=== PATIENT | female | born 1985 | race Two or more races ===

== ENCOUNTER 2022-10-13 19:55 | Emergency (ER) | payer OTHER ==
[~2022-10-13] VITALS: Ht 170.2 cm; Wt 113.4 kg
[~2022-10-13 19:55] MED LIST: PREDNISONE5 MG/DOSE- PO; RECTICARE30 GM TP; ZYRTEC10 MG PO
[2022-10-13] MEDS ORDERED: TOPROL XL25 M1 (20:06)
[2022-10-13] MEDS ORDERED: ECOTRIN81 MG (20:06)
== END 2022-10-13 20:48 | disposition home or self-care (01) ==
LOC: ER 19:55
DX: L02.31 Cutaneous abscess of buttock (principal)